=== PATIENT | female | born 1985 ===

== ENCOUNTER 2021-08-08 09:00 | Outpatient (CLI) | payer OTHER | END 2021-08-08 10:00 | disposition home or self-care (01) | LOC: EDBD 09:00 → PRENATAL 09:00 | PROVIDERS: ATTEND Obstetrics & Gynecology Maternal & Fetal Medicine | DX: Z36.89 Encounter for other specified antenatal screening (principal); O36.80X1 Pregnancy with inconclusive fetal viability, fetus 1; O09.521 Supervision of elderly multigravida, first trimester; Z3A.12 12 weeks gestation of pregnancy ==

== ENCOUNTER → 2021-08-08 10:42 | Outpatient (CLI) | payer OTHER | END | disposition home or self-care (01) | LOC: EDBD 10:42 → LAB 10:42 | PROVIDERS: ATTEND Obstetrics & Gynecology Maternal & Fetal Medicine | DX: O42.919 Preterm premature rupture of membranes, unspecified as to length of time between rupture and onset of labor, unspecified trimester (principal); O60.00 Preterm labor without delivery, unspecified trimester; O09.299 Supervision of pregnancy with other poor reproductive or obstetric history, unspecified trimester ==

== ENCOUNTER 2021-09-25 07:54 | Outpatient (CLI) | payer OTHER | END 2021-09-25 09:17 | disposition home or self-care (01) | LOC: PRENATAL 07:54 | PROVIDERS: ATTEND Obstetrics & Gynecology Maternal & Fetal Medicine | DX: O35.0XX1 Maternal care for (suspected) central nervous system malformation in fetus, fetus 1 (principal); O35.3XX1 Maternal care for (suspected) damage to fetus from viral disease in mother, fetus 1; O98.512 Other viral diseases complicating pregnancy, second trimester; O09.512 Supervision of elderly primigravida, second trimester; O42.912 Preterm premature rupture of membranes, unspecified as to length of time between rupture and onset of labor, second trimester; Z36.89 Encounter for other specified antenatal screening; Z3A.20 20 weeks gestation of pregnancy ==

== ENCOUNTER → 2021-09-25 10:04 | Outpatient (CLI) | payer OTHER | END | disposition home or self-care (01) | LOC: LAB 10:04 | PROVIDERS: ATTEND Obstetrics & Gynecology Maternal & Fetal Medicine | DX: B96.0 Mycoplasma pneumoniae [M. pneumoniae] as the cause of diseases classified elsewhere (principal); O26.879 Cervical shortening, unspecified trimester; O09.219 Supervision of pregnancy with history of pre-term labor, unspecified trimester; O42.919 Preterm premature rupture of membranes, unspecified as to length of time between rupture and onset of labor, unspecified trimester ==

== ENCOUNTER 2021-10-23 15:19 | Outpatient (CLI) | payer OTHER | END 2021-10-23 16:20 | disposition home or self-care (01) | LOC: PRENATAL 15:19 | PROVIDERS: ATTEND Obstetrics & Gynecology Maternal & Fetal Medicine | DX: O26.842 Uterine size-date discrepancy, second trimester (principal); O09.522 Supervision of elderly multigravida, second trimester; O26.872 Cervical shortening, second trimester; Z36.89 Encounter for other specified antenatal screening; Z3A.23 23 weeks gestation of pregnancy ==